=== PATIENT | female | born 1960 | race Caucasian/White ===

== ENCOUNTER 2021-09-03 13:22 | Inpatient (IN) ==
[2021-09-03] MEDS ORDERED: DEXTROSE 50% 25 GM/50 ML VIAL IV PRN (13:34)
[2021-09-03] MEDS ORDERED: GLUCAGON 1 MG VIAL IM PRN (13:34)
[2021-09-03] MEDS ORDERED: ONDANSETRON 4 MG/2 ML VIAL IV PRN (13:34)
[2021-09-03] MEDS ORDERED: ENOXAPARIN 40 MG/0.4 ML SYRINGE SUBCUT SCH (14:00)
[2021-09-03] MEDS ORDERED: VANCOMYCIN INJ 1,000 MG in SODIUM CHLORIDE 0.9% 250 ML IV SCH (14:00)
[2021-09-03 15:48] LABS: Calcium 9.6 MG/DL (8.5-10.1); Osmolality,Calculated 278.7 MOS/KG (273-304); Potassium 3.7 MMOL/L (3.5-5.1)
[2021-09-03] MEDS: SODIUM CHLORIDE 0.9% 1,000 ML IV SCH (16:35)
[2021-09-03] MEDS: INSULIN LISPRO 100 UNIT/ML SUBCUT SCH ×2 (16:35→23:10)
[2021-09-03] MEDS ORDERED: VANCOMYCIN INJ 1,750 MG in SODIUM CHLORIDE 0.9% 500 ML IV ONE ×2 (17:00→20:00)
[2021-09-03] MEDS: metFORMIN 500 MG TABLET PO SCH (17:59)
[2021-09-03] MEDS: ACETAMINOPHEN 325 MG TABLET PO PRN (21:12)
[2021-09-03] MEDS: METOPROLOL SUCCINATE XL 50 MG TABLET PO SCH (21:13)
[2021-09-03] MEDS: DOCUSATE SODIUM 100 MG CAPSULE PO SCH (21:13)
[2021-09-03] MEDS: ATORVASTATIN 80 MG TABLET PO SCH (21:13)
[2021-09-04] MEDS: ACETAMINOPHEN 325 MG TABLET PO PRN ×4 (03:56→23:47)
[2021-09-04] MEDS: PANTOPRAZOLE 40 MG TABLET PO SCH (06:04)
[2021-09-04 06:21] LABS: Basophils # 0.1 10*3/uL (0.0-0.2); Basophils % 1.1 % (0.0-0.8); Eosinophils # 0.3 10*3/uL (0.0-0.87); Hematocrit 39.6 VOL% (35.7-47.0); Immature Granulocytes % 0.3 %; Immature Granulocytes Absolute 0.02 #; Lymphocytes # 2.2 10*3/uL (1.4-4.0); Lymphocytes % 31.1 % (21.3-54.2); Mean Corpuscular HGB Conc 32.8 GM/DL (32-36); Mean Corpuscular Volume 90.6 FL (87-102); Mean Platelet Volume 10.4 FL (9.6-12.0); Monocytes % 6.4 % (1.7-12.7); Neutrophils % 57.1 % (38.7-73.9); Platelet Count 294 T/CUMM (130-400); Red Blood Count 4.37 MC/CUMM (3.8-5.5); Red Cell Distribution Width 14.9 % (9.3-17.3); White Blood Count 7.2 T/CUMM (4-12)
[2021-09-04] MEDS ORDERED: LEVOTHYROXINE 112 MCG TABLET PO SCH (06:30)
[2021-09-04 06:51] LABS: Calcium 9.1 MG/DL (8.5-10.1); Osmolality,Calculated 279.7 MOS/KG (273-304); Potassium 4.2 MMOL/L (3.5-5.1)
[2021-09-04] MEDS: metFORMIN 500 MG TABLET PO SCH (08:30)
[2021-09-04] MEDS: INSULIN LISPRO 100 UNIT/ML SUBCUT SCH ×4 (09:21→21:08)
[2021-09-04] MEDS: METOPROLOL SUCCINATE XL 50 MG TABLET PO SCH ×2 (09:27→21:07)
[2021-09-04] MEDS: SPIRONOLACTONE 25 MG TABLET PO SCH (09:27)
[2021-09-04] MEDS: DOCUSATE SODIUM 100 MG CAPSULE PO SCH ×3 (09:27→21:07)
[2021-09-04] MEDS: CHOLECALCIFEROL 1,000 UNIT TABLET PO SCH (09:27)
[2021-09-04] MEDS: RIVAROXABAN 20 MG TABLET PO SCH (09:30)
[2021-09-04] MEDS: SODIUM CHLORIDE 0.9% 1,000 ML IV SCH ×3 (09:31→17:36)
[2021-09-04] MEDS: VANCOMYCIN INJ 1,750 MG in SODIUM CHLORIDE 0.9% 500 ML IV SCH ×2 (09:32→21:06)
[2021-09-04] MEDS: CEFEPIME 1,000 MG in SODIUM CHLORIDE 0.9% 100 ML IV SCH ×2 (11:21→17:16)
[2021-09-04] MEDS ORDERED: TEMAZEPAM 15 MG CAPSULE PO PRN (14:20)
[2021-09-04] MEDS: hydrOXYzine HCL 10 MG TABLET PO PRN ×2 (15:17→23:46)
[2021-09-04] MEDS: ATORVASTATIN 80 MG TABLET PO SCH (21:07)
[2021-09-05] MEDS: CEFEPIME 1,000 MG in SODIUM CHLORIDE 0.9% 100 ML IV SCH ×2 (00:53→05:42)
[2021-09-05 05:31] LABS: Basophils # 0.1 10*3/uL (0.0-0.2); Eosinophils # 0.3 10*3/uL (0.0-0.87); Eosinophils % 4.1 % (0.00-10.9); Hematocrit 38.3 VOL% (35.7-47.0); Hemoglobin 12.2 GM/DL (12.0-16.0); Immature Granulocytes % 0.4 %; Immature Granulocytes Absolute 0.03 #; Lymphocytes # 1.9 10*3/uL (1.4-4.0); Mean Corpuscular HGB Conc 31.9 GM/DL (32-36); Mean Corpuscular Volume 92.1 FL (87-102); Mean Platelet Volume 10.3 FL (9.6-12.0); Monocytes % 7.3 % (1.7-12.7); Neutrophils % 61.2 % (38.7-73.9); Platelet Count 233 T/CUMM (130-400); Red Blood Count 4.16 MC/CUMM (3.8-5.5); Red Cell Distribution Width 15.1 % (9.3-17.3); White Blood Count 7.1 T/CUMM (4-12)
[2021-09-05] MEDS: LEVOTHYROXINE 125 MCG TABLET PO SCH (05:41)
[2021-09-05] MEDS: PANTOPRAZOLE 40 MG TABLET PO SCH (05:41)
[2021-09-05 05:49] LABS: Calcium 8.9 MG/DL (8.5-10.1); Osmolality,Calculated 288.1 MOS/KG (273-304); Potassium 4.8 MMOL/L (3.5-5.1)
[2021-09-05] MEDS: CHOLECALCIFEROL 1,000 UNIT TABLET PO SCH (08:16)
[2021-09-05] MEDS: SPIRONOLACTONE 25 MG TABLET PO SCH (08:17)
[2021-09-05] MEDS: INSULIN LISPRO 100 UNIT/ML SUBCUT SCH ×4 (08:17→22:05)
[2021-09-05] MEDS: ACETAMINOPHEN 325 MG TABLET PO PRN ×2 (08:18→22:10)
[2021-09-05] MEDS: METOPROLOL SUCCINATE XL 50 MG TABLET PO SCH ×2 (08:18→22:05)
[2021-09-05] MEDS: VANCOMYCIN INJ 1,750 MG in SODIUM CHLORIDE 0.9% 500 ML IV SCH (08:30)
[2021-09-05] MEDS: RIVAROXABAN 20 MG TABLET PO SCH (08:30)
[2021-09-05] MEDS: DOCUSATE SODIUM 100 MG CAPSULE PO SCH ×2 (09:03→22:05)
[2021-09-05] MEDS: hydrOXYzine HCL 10 MG TABLET PO PRN (12:41)
[2021-09-05] MEDS: ATORVASTATIN 80 MG TABLET PO SCH (22:04)
[2021-09-06] MEDS: ACETAMINOPHEN 325 MG TABLET PO PRN ×2 (04:04→17:12)
[2021-09-06 05:32] LABS: Basophils # 0.1 10*3/uL (0.0-0.2); Basophils % 1.1 % (0.0-0.8); Eosinophils # 0.3 10*3/uL (0.0-0.87); Eosinophils % 4.2 % (0.00-10.9); Hemoglobin 12.3 GM/DL (12.0-16.0); Immature Granulocytes % 0.3 %; Immature Granulocytes Absolute 0.02 #; Mean Corpuscular HGB Conc 32.4 GM/DL (32-36); Mean Platelet Volume 10.5 FL (9.6-12.0); Monocytes % 6.9 % (1.7-12.7); Neutrophils % 58.5 % (38.7-73.9); Platelet Count 262 T/CUMM (130-400); Red Blood Count 4.13 MC/CUMM (3.8-5.5); Red Cell Distribution Width 14.9 % (9.3-17.3)
[2021-09-06 05:51] LABS: Osmolality,Calculated 283.5 MOS/KG (273-304); Potassium 4.6 MMOL/L (3.5-5.1)
[2021-09-06] MEDS: PANTOPRAZOLE 40 MG TABLET PO SCH (06:25)
[2021-09-06] MEDS: LEVOTHYROXINE 125 MCG TABLET PO SCH (06:25)
[2021-09-06] MEDS: INSULIN LISPRO 100 UNIT/ML SUBCUT SCH ×4 (09:17→21:55)
[2021-09-06] MEDS: hydrOXYzine HCL 10 MG TABLET PO PRN ×2 (09:17→21:26)
[2021-09-06] MEDS: METOPROLOL SUCCINATE XL 50 MG TABLET PO SCH ×2 (09:18→21:26)
[2021-09-06] MEDS: SPIRONOLACTONE 25 MG TABLET PO SCH (09:18)
[2021-09-06] MEDS: RIVAROXABAN 20 MG TABLET PO SCH (09:18)
[2021-09-06] MEDS: DAPAGLIFLOZIN 5 MG TABLET PO SCH (09:18)
[2021-09-06] MEDS: CHOLECALCIFEROL 1,000 UNIT TABLET PO SCH (09:18)
[2021-09-06] MEDS: DOCUSATE SODIUM 100 MG CAPSULE PO SCH ×2 (09:18→21:26)
[2021-09-06] MEDS: diphenhydrAMINE CAP 25 MG CAPSULE PO PRN ×2 (13:56→21:25)
[2021-09-06] MEDS ORDERED: TUBERCULIN SKIN TEST 0.1 ML SYRINGE INTRADERM ONE (15:00)
[2021-09-06] MEDS: ATORVASTATIN 80 MG TABLET PO SCH (21:26)
[2021-09-07] MEDS: ACETAMINOPHEN 325 MG TABLET PO PRN (03:10)
[2021-09-07] MEDS: diphenhydrAMINE CAP 25 MG CAPSULE PO PRN (05:59)
[2021-09-07] MEDS: LEVOTHYROXINE 125 MCG TABLET PO SCH (06:00)
[2021-09-07] MEDS: PANTOPRAZOLE 40 MG TABLET PO SCH (06:00)
[2021-09-07 06:30] LABS: Basophils # 0.1 10*3/uL (0.0-0.2); Basophils % 1.1 % (0.0-0.8); Eosinophils # 0.3 10*3/uL (0.0-0.87); Eosinophils % 3.7 % (0.00-10.9); Hematocrit 37.7 VOL% (35.7-47.0); Hemoglobin 12.2 GM/DL (12.0-16.0); Immature Granulocytes % 0.1 %; Immature Granulocytes Absolute 0.01 #; Lymphocytes # 2.3 10*3/uL (1.4-4.0); Mean Corpuscular HGB Conc 32.4 GM/DL (32-36); Mean Corpuscular Volume 91.5 FL (87-102); Mean Platelet Volume 10.7 FL (9.6-12.0); Monocytes % 7.1 % (1.7-12.7); Platelet Count 264 T/CUMM (130-400); Red Blood Count 4.12 MC/CUMM (3.8-5.5); Red Cell Distribution Width 14.9 % (9.3-17.3); White Blood Count 7.2 T/CUMM (4-12)
[2021-09-07 06:49] LABS: Calcium 9.6 MG/DL (8.5-10.1); Osmolality,Calculated 282.5 MOS/KG (273-304); Potassium 4.3 MMOL/L (3.5-5.1)
[2021-09-07] MEDS: hydrOXYzine HCL 10 MG TABLET PO PRN (08:23)
[2021-09-07] MEDS: SPIRONOLACTONE 25 MG TABLET PO SCH (08:23)
[2021-09-07] MEDS: DAPAGLIFLOZIN 5 MG TABLET PO SCH (08:23)
[2021-09-07] MEDS: CHOLECALCIFEROL 1,000 UNIT TABLET PO SCH (08:23)
[2021-09-07] MEDS: METOPROLOL SUCCINATE XL 50 MG TABLET PO SCH (08:23)
[2021-09-07] MEDS: RIVAROXABAN 20 MG TABLET PO SCH (08:24)
[2021-09-07] MEDS: DOCUSATE SODIUM 100 MG CAPSULE PO SCH (08:24)
[2021-09-07] MEDS: INSULIN LISPRO 100 UNIT/ML SUBCUT SCH ×2 (08:26→12:54)
[2021-09-07] MEDS: SODIUM CHLORIDE 0.9% 1,000 ML IV SCH (10:52)
[2021-09-07 12:48] VITALS: BP 154/93
== END 2021-09-07 12:54 | DRG 420 ==
LOC: N.5E 14:27
PROVIDERS: ADMIT Internal Medicine; ATTEND Internal Medicine